=== PATIENT | female | born 1985 | race Caucasian/White ===

== ENCOUNTER → 2021-06-24 10:21 | Outpatient (CLI) | payer OTHER, SELFPAY ==
--- NOTE | 2021-06-24 12:23 | DIET.PN ---
Dietary Progress Note Assessment: 35y F attending RD visit for help with initiating a low FODMAP diet for abd bloating and diarrhea. Also eats mostly plant based so curious how much protein she should get and any other nutrients of concern. Pt noticed starting in February 2021 episodes of lower abd bloating c malodorous flatulence and diarrhea 3-4x/d. Pt had similar presentation 2y ago and was told to try lactose free diet. Pt had resolved sx with lactose free diet and still avoids dairy. 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 Pt visited PCP who gave her some handouts on low FODMAP diet and referral to RD. Pt has been busy and on vacations this summer but is trying to stay away from some of the biggest FODMAPs (cruciferous, onions, garlic, beans/lentils, gluten, dairy). She has been eating eggs c GF toast for breakfast, Green bowl with quinoa for lunch and feels her digestion tolerates this well. However, she is overwhelmed by the elimination phase of the diet and wants to understand more of why and how the process works. Pt eats mostly plant based, but does consume eggs, seafood, beef, etc several times per month. Nutrition Diagnosis: altered GI function r/t intolerance to some plant sugars and fibers aeb pt reports lower abd bloating and diarrhea (3-4x/d), pt notices reduced sx with reduction in high FODMAP foods. Interventions: 1. Assessed pts primarily plant based diet for nutritional adequacy. Provided pt handout of nutrients of concern with food sources of all. Recc pt take B12 sublingual or liquid supplement if intake of animal protein is less than once weekly. Took special care to instruct pt on s/sx anemia and ways to combine food to ensure adequate iron intake as pt is menstruating female with high activity level. Calculated pts protein needs and provided handout on Vegan protein sources. 2. Provided pt overview on low FODMAP diet protocol for both elimination and reintroduction phase. Provided pt handouts and online resources. Reviewed FODMAP categories and foods which are low, moderate, and high. Educated on the reintroduction phase and how to test one food at a time with the end goal of as varied diet as possible without sx. Answered all pt questions. Provided pt meal and snack plan. Diet Order: low FODMAP diet x4w followed by reintroduction phase. EER: 50-60g PRO/d Monitoring/Evaluations: Pt will call in 4-6w to schedule visit for reintroduction phase planning or sooner if needed.
== END ==
PROVIDERS: PCP Registered Nurse Diabetes Educator; Referring Provider Registered Nurse Diabetes Educator; Visit Provider Registered Nurse Diabetes Educator
DX: R14.0 Abdominal distension (gaseous) (principal); R19.7 Diarrhea, unspecified; Z71.3 Dietary counseling and surveillance
CPT/HCPCS: 97802

== ENCOUNTER → 2022-02-04 16:26 | Outpatient (ROUT) | payer OTHER, SELFPAY | PROVIDERS: PCP Registered Nurse Diabetes Educator; Visit Provider Family Medicine | DX: Z34.00 Encounter for supervision of normal first pregnancy, unspecified trimester (principal) | CPT/HCPCS: 87086 ==

== ENCOUNTER → 2022-02-19 16:03 | Outpatient (CLI) | payer OTHER, SELFPAY ==
--- NOTE | 2022-02-19 16:05 | DI.ECHO.S_ITS ---
[place] [facility]---------+ [facility] +---------+ : : [address] : : : : [id number] : : : : Phone: [phone]+ Echocardiogram Report + + :Name: NICK OSCAR Study Date: 02/19/2022 Height: 59 in : :[facility] ReadingLocation: Weight: 106 lb: : Gender: Female BSA: 1.4 m2 : :: 1985 Age: 36 yrs BP: 92/58 mmHg: :Reason For Study: Documented PFO : : Performed By: Garth Cordova : :Referring: RAMON DURAN : + + Interpretation Summary Pt is - no bubble study was performed. Left ventricular ejection fraction is estimated to be 50%. The interatrial septum bows toward right atrium consistent with elevated left atrial pressure. There is no Doppler evidence for an atrial septal defect. Bubble study was not done. Procedure: A two-dimensional transthoracic echocardiogram with color flow and Doppler was performed. The study quality was technically good. There is no prior echocardiogram noted for this patient. The patient was in normal sinus rhythm during the exam. Left Ventricle: The left ventricle is normal in size. There is normal left ventricular wall thickness. Left ventricular ejection fraction is estimated to be 50%. Right Ventricle: The right ventricle is normal in size and function. Atria: The left atrium is mildly dilated. Right atrial size is normal. The interatrial septum bows toward right atrium consistent with elevated left atrial pressure. There is no Doppler evidence for an atrial septal defect. Bubble study was not done. Mitral Valve: The mitral valve is normal in structure and function. There is trace mitral regurgitation. Aortic Valve: The aortic valve is trileaflet. The aortic valve opens well. No aortic regurgitation is present. Tricuspid Valve: The tricuspid valve is normal in structure and function. There is a trace or physiologic amount of tricuspid regurgitation. Pulmonary artery pressures cannot be estimated because of the lack of a measurable TR jet velocity but the IVC suggests a CVP of around 3 mmHg. Pulmonic Valve: The pulmonic valve is normal in structure and function. There is trace pulmonic regurgitation. Great Vessels: The aortic root is normal size. The dimensions of the ascending aorta are normal. The pulmonary artery is normal size. The IVC is of normal diameter and collapses greater than 50% with a sniff. This suggests a low right atrial pressure of 3 mm Hg. Pericardium/ Pleura There is no pericardial effusion. There is no pleural effusion. MMode/2D Measurements & Calculations LVIDd: 4.8 cm LVOT diam: 1.8 cm LVIDs: 3.0 cm Ao root diam: 2.4 cm FS: 37.0 % asc Aorta Diam: 2.7 cm EPSS: 0.36 cm Ao Arch Diam (Prox Trans): 2.0 cm IVSd: 0.54 cm LVPWd: 0.54 cm LV rosenthal. diameter/BSA (cm/m^2): 3.4 LV sys. diameter/BSA (cm/m^2): 2.1 LA A2 area: 17.2 cm2 RA long axis: 4.6 cm LA A4 area: 19.8 cm2 RA area: 14.2 cm2 LA length (vol): 5.7 cm RA vol: 37.5 ml LA vol: 50.6 ml RA : 26.7 ml/m2 LA vol index: 36.0 ml/m2 IVC diam: 1.9 cm TAPSE: 2.2 cm Doppler Measurements & Calculations Ao V2 max: 137.5 cm/sec LVOT Max Dk: 98.8 cm/sec Ao V2 mean: 111.3 cm/sec LV V1 max P.9 mmHg Ao max P.6 mmHg LV V1 VTI: 21.6 cm Ao mean P.1 mmHg RENATO(I,D): 1.8 cm2 Ao V2 VTI: 31.3 cm RENATO(V,D): 1.9 cm2 sev ratio: 0.69 RENATO indexed to BSA (cm^2/m^2): 1.3 MV E max dk: 86.9 cm/sec PA V2 max: 79.2 cm/sec MV A max dk: 55.5 cm/sec PA V2 mean: 60.0 cm/sec MV E/A: 1.6 PA mean P.6 mmHg Med Peak E' Dk: 7.2 cm/sec PA pr(Accel): 17.3 mmHg E/E' med: 12.1 Lat Peak E' Dk: 9.0 cm/sec E/E' lat: 9.6 E/e' average: 10.9 MV dec time: 0.16 sec SV(LVOT): 57.6 ml Reading Physician:09:09 AM
== END ==
PROVIDERS: PCP Registered Nurse Diabetes Educator; Referring Provider Family Medicine; Visit Provider Family Medicine
DX: Q21.1 Atrial septal defect (principal)
CPT/HCPCS: 93306

== ENCOUNTER → 2022-02-21 15:20 | Outpatient (CLI) | payer OTHER, SELFPAY | PROVIDERS: PCP Registered Nurse Diabetes Educator; Referring Provider Family Medicine; Visit Provider Family Medicine | DX: Z3A.11 11 weeks gestation of pregnancy (principal) | CPT/HCPCS: 36415 ==

== ENCOUNTER → 2022-04-22 07:38 | Outpatient (CLI) | payer OTHER, SELFPAY ==
--- NOTE | 2022-04-22 07:39 | DI.US.S_ITS ---
PROCEDURE: US OB >= 14 WEEKS FETUS INDICATIONS: Anatomy Screening OUTSIDE/PRIOR DATING DATA: Last menstrual period (LMP): 11/22/2021. LMP-based estimated date of delivery (NIC): 08/29/2022 First dating scan (date and location): 04/22/2022. Estimated date of delivery (NIC) from first dating scan: 09/05/2022 TECHNIQUE: Real-time scanning was performed of the fetus, with image documentation and biometric measurements. Endovaginal scannin [place] it COMPARISON: None. FINDINGS: General: A single living intrauterine gestation is present. Presentation: Breech Placenta: Placental position is posterior, without previa. Amniotic fluid index: 13.1 cm, normal range is 5-24 cm. Single deepest vertical pocket is 5 cm. heart rate: 153 beats per minute. Maternal cervical canal: 4.0 cm long. Normal lower limit is 2.5 cm. biometrics: Biparietal diameter: 4.7 cm, 20 weeks, 0 day Head circumference: 18.6 cm, 20 weeks, 6 days Abdominal circumference: 15.9 cm, 21 weeks, 0 day Femur length: 3.3 cm, 20 weeks, 1 day Clinically estimated gestational age: Not applicable. Composite gestational age from present scan: 20 weeks, 4 days Estimated weight and percentile: 367 grams, 9 percent Anatomic survey: Neuro: Ventricles are non-dilated at less than 10 mm. Cisterna magna is normal at 3-11 mm. Cerebellum is normal in size and morphology. Nuchal skin fold: Normal at less than 6 mm between 14-21 weeks gestational age. Face: Nose and lips, facial profile are normal. Spine: No evidence for spina bifida. Heart: 4-chambered heart is present, with normal ventricular outflow tracts. Diaphragm: Diaphragm is intact. Stomach: Left-sided stomach is present. Kidneys: No hydronephrosis. Normal is less than 5 mm in 2nd trimester, less than 7 mm in 3rd trimester. Cord: 3-vessel cord has orthotopic insertion. Bladder: Normal in size. Extremities: All 4 extremities identified. IMPRESSION: 1. Single live intrauterine gestation with fetus in breech presentation. heart rate is 153 beats per minute. Normal amount of amniotic fluid. 2. Estimated gestational age is 20 weeks, 4 days. Estimated weight is at 9 percent. 3. Normal anatomic survey. We strive to produce accurate, complete, and clear reports of imaging services. To assist us in improving patient care, this report was composed using standard report templates and voice recognition software. Therefore, it may contain abnormal punctuation, insertions and/or omissions. Occasional wrong-word or sound-alike substitutions may occur. Though we review the report and make efforts to correct it, we do recommend that the report be read carefully in proper context to recognize any text inaccuracies. Dictated by: Geoff Cabrales M.D. on 04/22/2022 at 10:19 Approved by: Geoff Cabrales M.D. on 04/22/2022 at 10:26
== END ==
PROVIDERS: PCP Registered Nurse Diabetes Educator; Referring Provider Family Medicine; Visit Provider Family Medicine
DX: Z34.92 Encounter for supervision of normal pregnancy, unspecified, second trimester (principal); Z3A.20 20 weeks gestation of pregnancy
CPT/HCPCS: 76811

== ENCOUNTER → 2022-05-20 07:32 | Outpatient (CLI) | payer OTHER, SELFPAY ==
[2022-05-20 10:03] LABS: Hematocrit 33.9 % (36-46)
[2022-05-20 11:12] LABS: GTT (PREG) 1 Hour PP 50gm Dose 120 mg/dL (76-139)
== END ==
PROVIDERS: PCP Registered Nurse Diabetes Educator; Referring Provider Family Medicine; Visit Provider Family Medicine
DX: O26.899 Other specified pregnancy related conditions, unspecified trimester (principal); Z67.91 Unspecified blood type, Rh negative
CPT/HCPCS: 36415; 82950; 85014; 85018; 86850

== ENCOUNTER 2022-08-11 14:01 | Outpatient (CLI) | payer OTHER, SELFPAY ==
--- NOTE | 2022-08-11 14:32 | PM.OBTRLD ---
Visit Information Visit Information Date of evaluation: 08/11/22 Primary OB Provider: Samreen Thornton Reason for Evaluation: Yes non-stress test non-stress test reason: other (AMA) Comments/Additional reasons for admission: Pt is a 37yo at 36w0d here for NST for AMA. She is feeling her baby move regularly. No LOF, vaginal bleeding, contractions. [facility] Medical History (Updated 08/11/22 @ 14:33 by Samreen Thornton MD) Abnormal Pap smear of cervix (~2012) HPV test positive Human papilloma virus (~2012) Migraines (~2014) PFO (patent foramen ovale) (~10/2015) Surgical History (Updated 05/10/21 @ 22:34 by Gretchen Del Castillo) Anesthesia [place] teeth removed Family History (Updated 01/29/22 @ 10:12 by Jamilah Lara RN) Father Osteoarthritis History of heart disease Mother Hypertension Grandmother Hypertension Grandfather Cancer Grandmother Cancer Diabetes mellitus History of heart disease Breast cancer Social History marital status: number of children: 0 household members: spouse lives independently: Yes housing: house pets and animals: No education level: college 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: Yes special cody needs: No travel history: other ([place] for 3 wks) seatbelt use: always water heater temp set < 120 deg: Yes (will check) working smoke detector in home: Yes fire extinguisher in home: Yes carbon monox detector in home: No firearms in home: No do you feel safe at home: Yes Smoking Status: Never smoker second hand exposure: No alcohol intake: former (1 drink/week) substance use type: does not use during the past year weight has: remained stable well-balanced diet: daily or most days daily servings fruits/ve-4 caffeine: No Type(s) of exercise: walking, weight lifting and yoga frequency: 3-4 times per week Evaluation Evaluation Baseline heart rate: 150 Variability: Moderate (11-25) monitor accelerations: Present Monitor Decelerations: Absent Category of Tracing: Reactive Diagnosis, Plan/Disposition Final Diagnosis (1) Advanced maternal age (AMA) in : Status: Acute Plan/Disposition Plan: 37yo at 36w0d here for NST for AMA. NST reactive. Stable to d/c home. OB Disposition: home
== END 2022-08-11 14:35 | disposition home or self-care (01) ==
LOC: LABOR 15:20 → OB 08-15 08:29
PROVIDERS: PCP Registered Nurse Diabetes Educator; Referring Provider Family Medicine; Visit Provider Family Medicine
DX: O09.513 Supervision of elderly primigravida, third trimester (principal); Z3A.36 36 weeks gestation of pregnancy; Z36.85 Encounter for antenatal screening for Streptococcus B
CPT/HCPCS: 59025; 87653; G0378; G0379

== ENCOUNTER → 2022-08-11 16:14 | Outpatient (CLI) | payer OTHER, SELFPAY ==
[2022-08-12 15:42] LABS: Strep Grp B PCR NEG for Grp B Strep
== END ==
PROVIDERS: PCP Registered Nurse Diabetes Educator; Visit Provider Family Medicine
DX: Z36.85 Encounter for antenatal screening for Streptococcus B (principal)
CPT/HCPCS: 87653

== ENCOUNTER 2022-08-22 10:02 | Outpatient (CLI) | payer OTHER, SELFPAY ==
--- NOTE | 2022-08-22 10:27 | P.TNLD_ITS ---
Visit Information Visit Information Date of evaluation: 08/22/22 Primary OB Provider: Samreen Thornton Reason for Evaluation: Yes non-stress test Comments/Additional reasons for admission: 37yo at 37w4d here for NST for AMA. She is feeling her baby move regularly. No contractions, LOF, vaginal bleeding. [facility] Medical History (Updated 08/22/22 @ 15:52 by Samreen Thornton MD) Abnormal Pap smear of cervix (~2012) HPV test positive Human papilloma virus (~2012) Migraines (~2014) PFO (patent foramen ovale) (~10/2015) Surgical History (Updated 05/10/21 @ 22:34 by Gretchen Del Castillo) Anesthesia [place] teeth removed Family History (Updated 01/29/22 @ 10:12 by Jamilah Lara RN) Father Osteoarthritis History of heart disease Mother Hypertension Grandmother Hypertension Grandfather Cancer Grandmother Cancer Diabetes mellitus History of heart disease Breast cancer Social History marital status: number of children: 0 household members: spouse lives independently: Yes housing: house pets and animals: No education level: college 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: Yes special cody needs: No travel history: other ([place] for 3 wks) seatbelt use: always water heater temp set < 120 deg: Yes (will check) working smoke detector in home: Yes fire extinguisher in home: Yes carbon monox detector in home: No firearms in home: No do you feel safe at home: Yes Smoking Status: Never smoker second hand exposure: No alcohol intake: former (1 drink/week) substance use type: does not use during the past year weight has: remained stable well-balanced diet: daily or most days daily servings fruits/ve-4 caffeine: No Type(s) of exercise: walking, weight lifting and yoga frequency: 3-4 times per week Evaluation Evaluation Baseline heart rate: 150 Variability: Moderate (11-25) monitor accelerations: Present Monitor Decelerations: Absent Category of Tracing: Reactive Diagnosis, Plan/Disposition Final Diagnosis (1) Advanced maternal age (AMA) in : Status: Acute (2) 37 weeks gestation of : Status: Acute Plan/Disposition Plan: 37yo at 37w4d here for NST for AMA. NST reactive. Continue weekly testing. OB Disposition: home
== END 2022-08-22 10:35 | disposition home or self-care (01) ==
LOC: LABOR 10:20 → OB 09-03 12:13
PROVIDERS: PCP Registered Nurse Diabetes Educator; Referring Provider Family Medicine; Visit Provider Family Medicine
DX: O09.513 Supervision of elderly primigravida, third trimester (principal); Z3A.37 37 weeks gestation of pregnancy
CPT/HCPCS: 59025; G0378; G0379

== ENCOUNTER 2022-08-29 05:54 | Observation (INO) | payer OTHER, SELFPAY ==
[2022-08-29] MEDS: TERBUTALINE 1 MG/ML VIAL 0.25 MG SUBCUT (07:07)
--- NOTE | 2022-08-29 07:38 | P.HPOB_ITS ---
OB HPI Date/Time Date of admission: 08/29/22 Date Patient Seen: 08/29/22 Time Patient Seen: 07:00 History of Present Condition Chief complaint: inversion NIC Calculator Estimated Delivery Date Method Current WG Current Estimate 09/08/22 Manual 38w 4d Final NIC - ALLA Other Estimates 08/29/22 LMP (Certain) 40w 0d 09/08/22 Ultrasound #1 38w 4d Estimated Gestational Age (weeks): 38w4d : 1 Para: 0 Narrative: 37yo at 38w4d here for external cephalic version due to breech presentation. She has been feeling her baby move regularly. No vaginal bleeding, LOF, contractions. Her has been complicated by AMA with negative cfDNA testing, hyperemesis, maternal PFO on baby aspirin with normal echo. care: good care, initiated at week # (9) and pounds weight gain (25) Dating criteria OB: based on 1st trimester US only Obstetrical complications: hyperemesis Medical complications OB: cardiovascular (PFO) Preadmission Labs Last OB Lab Results: Blood Type A Negative 02/11/22 15:10 Antibody Screen Negative 05/20/22 08:47 Hematocrit 33.9 % (36-46) L 05/20/22 08:47 Hemoglobin 12.0 g/dL (12.0-16.0) 05/20/22 08:47 Hepatitis B Surface Antigen Negative s/c (NEGATIVE) 02/11/22 15 :10 Hepatitis C Antibody Negative s/c (NEGATIVE) 02/11/22 15:10 Rubella Antibody 7.1 IU/mL (>15) L 02/11/22 15:10 Varicella-Zoster IgG Antibody 325 index (Immune >165) 02/11/22 15:10 Glucose 1 Hour 120 mg/dL (76-139) 05/20/22 08:47 Group B Streptococcus (PCR) Neg for grp b strep 08/11/22 16:14 -: Urine: negative Genetic Screens: Cell-free DNA: Normal External Labs -: Urine: negative Evaluation Evaluation Baseline heart rate: 145 Variability: Moderate (11-25) monitor accelerations: Present Monitor Decelerations: Absent Category of Tracing: Reactive [facility] Medical History (Updated 08/22/22 @ 15:52 by Samreen Thornton MD) Abnormal Pap smear of cervix (~2012) HPV test positive Human papilloma virus (~2012) Migraines (~2014) PFO (patent foramen ovale) (~10/2015) Surgical History (Updated 05/10/21 @ 22:34 by Gretchen Del Castillo) Anesthesia [place] teeth removed Family History (Updated 01/29/22 @ 10:12 by Jamilah Lara RN) Father Osteoarthritis History of heart disease Mother Hypertension Grandmother Hypertension Grandfather Cancer Grandmother Cancer Diabetes mellitus History of heart disease Breast cancer Social History marital status: number of children: 0 household members: spouse lives independently: Yes housing: house pets and animals: No education level: college 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: Yes special cody needs: No travel history: other ([place] for 3 wks) seatbelt use: always water heater temp set < 120 deg: Yes (will check) working smoke detector in home: Yes fire extinguisher in home: Yes carbon monox detector in home: No firearms in home: No do you feel safe at home: Yes Smoking Status: Never smoker second hand exposure: No alcohol intake: former (1 drink/week) substance use type: does not use during the past year weight has: remained stable well-balanced diet: daily or most days daily servings fruits/ve-4 caffeine: No Type(s) of exercise: walking, weight lifting and yoga frequency: 3-4 times per week Meds Home Medications and Allergies Home Medications Medication Instructions Recorded Confirmed Type rizatriptan 10 mg disintegrating See Rx Instructions PO .COMPLEX 05/07/21 08/11/22 Rx tablet #30 tabs doxylamine succinate 25 mg tablet 25 mg PO BEDTIME PRN 01/29/22 08/11/22 History (Unisom (doxylamine)) prenat.vits,hernan,[id number] 1 tab PO DAILY 01/29/22 08/11/22 History pyridoxine (vitamin B6) 100 mg 100 mg PO QID 01/29/22 08/11/22 History tablet double electric breast pump and #1 ea 07/07/22 08/11/22 Rx supplies ondansetron 4 mg disintegrating 4 mg PO Q6H PRN nausea and 08/26/22 Rx tablet vomiting #30 tabs promethazine 25 mg tablet 25 mg PO QID PRN nausea and 08/26/22 Rx vomiting #30 tabs Allergies Allergy/AdvReac Type Severity Reaction Status Date / Time No Known Drug Allergies Allergy Unverified 08/11/22 15:50 Assessment and Plan Assessment and Plan Assessment and Plan narrative: 37yo at 38w4d here for external cephalic version for breech presentation. Risks vs benefits were discussed with the patient. Risks including but not li mited to intolerance, placental abruption, need for emergent . The pt agreed to the procedure, and the consent was signed and placed in her chart. The pt will receive terbutaline prior to the procedure.
== END 2022-08-29 10:00 | disposition home or self-care (01) ==
PROVIDERS: Admitting Provider Family Medicine; PCP Registered Nurse Diabetes Educator; Referring Provider Family Medicine; Visit Provider Family Medicine
DX: O32.1XX0 Maternal care for breech presentation, not applicable or unspecified (principal); Z3A.38 38 weeks gestation of pregnancy
CPT/HCPCS: 59025; 59050; 59412; G0378; G0379

== ENCOUNTER 2022-09-01 13:58 | Inpatient (IN) | payer OTHER, SELFPAY ==
[2022-09-01] MEDS: LACTATED RINGERS 1,000 ML 100 ML IV ×3 (14:15→18:17)
--- NOTE | 2022-09-01 14:45 | P.HPOB_ITS ---
OB HPI Date/Time Date of admission: 09/01/22 Date Patient Seen: 09/01/22 Time Patient Seen: 14:45 History of Present Condition Chief complaint: Labor NIC Calculator Estimated Delivery Date Method Current WG Current Estimate 09/08/22 Manual 39w 0d Final NIC - ALLA Other Estimates 08/29/22 LMP (Certain) 40w 3d 09/08/22 Ultrasound #1 39w 0d Estimated Gestational Age (weeks): 39w0d : 1 Para: 0 Narrative: 37yo at 39w0d who presented with SROM. Pt reports feeling a gush of fluid around 11am, with contractions starting shortly after and getting more intense. She continues to feel her baby move regularly. No vaginal bleeding. Pt had a successful version on 08/29, however she felt baby convert back to breech presentation that evening. The pts has been complicated by hyperemesis. Pt also has a PFO, but was cleared by Cardiology and MFM for delivery at this facility. echo was normal. care: good care, initiated at week # and pounds weight gain Dating criteria OB: based on 1st trimester US only Ultrasounds: normal 1st trimester US Obstetrical complications: hyperemesis Medical complications OB: cardiovascular (PFO) Indications Operative indications ( section): breech presentation Preadmission Labs Last OB Lab Results: Blood Type A Negative 02/11/22 15:10 Antibody Screen Negative 05/20/22 08:47 Hematocrit 33.9 % (36-46) L 05/20/22 08:47 Hemoglobin 12.0 g/dL (12.0-16.0) 05/20/22 08:47 Hepatitis B Surface Antigen Negative s/c (NEGATIVE) 02/11/22 15 :10 Hepatitis C Antibody Negative s/c (NEGATIVE) 02/11/22 15:10 Rubella Antibody 7.1 IU/mL (>15) L 02/11/22 15:10 Varicella-Zoster IgG Antibody 325 index (Immune >165) 02/11/22 15:10 Glucose 1 Hour 120 mg/dL (76-139) 05/20/22 08:47 Group B Streptococcus (PCR) Neg for grp b strep 08/11/22 16:14 -: Urine: negative Genetic Screens: Cell-free DNA: Normal External Labs -: Urine: negative Evaluation Evaluation Baseline heart rate: 150 Variability: Moderate (11-25) monitor accelerations: Present Monitor Decelerations: Absent Contraction Frequency (minutes): 3 Status: Category l Dilation (cm): 2 Effacement (%): 90 PFSH Medical History (Updated 09/01/22 @ 12:28 by Samreen Thornton MD) Abnormal Pap smear of cervix (~2012) HPV test positive Human papilloma virus (~2012) Migraines (~2014) PFO (patent foramen ovale) (~10/2015) Surgical History (Updated 05/10/21 @ 22:34 by Gretchen Del Castillo) Anesthesia [place] teeth removed Family History (Updated 01/29/22 @ 10:12 by Jamilah Lara RN) Father Osteoarthritis History of heart disease Mother Hypertension Grandmother Hypertension Grandfather Cancer Grandmother Cancer Diabetes mellitus History of heart disease Breast cancer Social History marital status: number of children: 0 household members: spouse lives independently: Yes housing: house pets and animals: No education level: college 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: Yes special cody needs: No travel history: other ([place] for 3 wks) seatbelt use: always water heater temp set < 120 deg: Yes (will check) working smoke detector in home: Yes fire extinguisher in home: Yes carbon monox detector in home: No firearms in home: No do you feel safe at home: Yes Smoking Status: Never smoker second hand exposure: No alcohol intake: former (1 drink/week) substance use type: does not use during the past year weight has: remained stable well-balanced diet: daily or most days daily servings fruits/ve-4 caffeine: No Type(s) of exercise: walking, weight lifting and yoga frequency: 3-4 times per week Meds Home Medications and Allergies Home Medications Medication Instructions Recorded Confirmed Type rizatriptan 10 mg disintegrating See Rx Instructions PO .COMPLEX 05/07/21 08/11/22 Rx tablet #30 tabs doxylamine succinate 25 mg tablet 25 mg PO BEDTIME PRN 01/29/22 08/11/22 History (Unisom (doxylamine)) prenat.vits,hernan,[id number] 1 tab PO DAILY 03/02/22 09/12/22 History pyridoxine (vitamin B6) 100 mg 100 mg PO QID 01/29/22 08/11/22 History tablet double electric breast pump and #1 ea 07/07/22 08/11/22 Rx supplies ondansetron 4 mg disintegrating 4 mg PO Q6H PRN nausea and 08/26/22 Rx tablet vomiting #30 tabs promethazine 25 mg tablet 25 mg PO QID PRN nausea and 08/26/22 Rx vomiting #30 tabs Allergies Allergy/AdvReac Type Severity Reaction Status Date / Time No Known Drug Allergies Allergy Unverified 08/11/22 15:50 OB Exam Narrative Exam Narrative: Gen: NAD, sitting comfortably in bed, appears well CV: RRR, no murmurs Resp: clear to auscultation bilaterally Abd: soft, nontender, gravid Ext: no edema Assessment and Plan Assessment and Plan Assessment and Plan narrative: 37yo at 39w0d here with SROM, baby in breech presentation after successful version on 08/29, unfortunately flipped back to breech. otherwise complicated by hyperemesis, pt with PFO cleared for delivery here with normal echo. GBS negative, Rh negative. Discussed with the pt and her the risks vs benefits of . Risks including but not limited to bleeding/hemorrhage, infection, injury to other organs such as the bowel/bladder, injury to fetus. The pt is agreeable to blood transfusion if medically necessary. The risks of attempted repeat version and vaginal breech delivery were also discussed. The pt and her consent to surgery. Consent was signed and placed in chart. The pt will receive 2g of Ancef prior to surgery. SCDs to be placed.
[2022-09-01 15:00] LABS: Add Manual Diff / Slide Review NO; Basophils Absolute Auto 0 /uL (0-100); Basophils Percent Auto 0.2 % (0-2); Eosinophils Absolute Auto 0 /uL (0-450); Eosinophils Percent Auto 0.1 % (2-4); Hematocrit 39.9 % (36-46); Hemoglobin 13.6 g/dL (12.0-16.0); Lymphocytes Absolute Auto 2300 /uL (1100-4500); Lymphocytes Percent Auto 25.1 % (25-40); Mean Corpuscular HGB Conc 34.1 % (30-36); Mean Corpuscular Hemoglobin 32.6 PG (26-34); Mean Corpuscular Volume 95.4 fL (80-100); Monocytes Absolute Auto 600 /uL (0-900); Monocytes Percent Auto 7.2 % (3-14); Neutrophils Absolute Auto 6100 /uL (1500-7000); Neutrophils Percent Auto 67.4 % (50-75); Platelet Count 192 X10^3/uL (150-400); Red Blood Cell Count 4.18 X10^6/uL (4.0-5.2); Red Cell Distribution Width 13.2 % (11.6-14.8)
--- NOTE | 2022-09-01 15:02 | PM.PREOP ---
Pre-operative Note COVID-19 COVID-19 status: Negative Result date/Date tested (Pos, Neg/Pending): 09/01/22 Interval Note History & Physical reviewed/Exam performed by Physician: Yes Changes to H&P: No
[2022-09-01 15:04] VITALS: BP 124/64
[2022-09-01 15:15] LABS: COVID19 -Nasal RAPID Negative (Negative)
[2022-09-01] MEDS: CEFAZOLIN 2 GM/100 ML PREMIX 100 ML IV (15:40)
--- NOTE | 2022-09-01 16:02 | SUR.OPER ---
Supine on Padded OR bed, head on pillow, safety belt at thigh, arms secured on padded arm boards at <90 degrees abduction. Bump under right buttock. Legs uncrossed with pillow under knees, gel pad to heels, tape over blanket to lower legs. Gel pad placed between urinary catheter tubing and patients posterior upper leg.
[2022-09-01 16:41] VITALS: BP 109/73; PULSE 71; RESP 24; TEMP 36.3; O2SAT 100
[2022-09-01 16:46] VITALS: BP 115/76; PULSE 68; RESP 13; O2SAT 100
[2022-09-01 16:51] VITALS: BP 107/72; PULSE 78; RESP 15; O2SAT 100
[2022-09-01 16:56] VITALS: BP 103/70; PULSE 63; RESP 18; O2SAT 100
--- NOTE | 2022-09-01 16:56 | SUR.OPER ---
Viable baby girl delivered at 1552. Placenta delivered. Cord blood tubes X2 and placenta given to L&D RN.
--- NOTE | 2022-09-01 16:58 | SUR.PHASEI ---
Report called to Mallika.
[2022-09-01 17:01] VITALS: BP 108/76; PULSE 75; RESP 13; TEMP 36.2; O2SAT 100
--- NOTE | 2022-09-01 17:16 | SUR.PHASEI ---
Patient transferred to [facility]. Report to IZABELA Tena stable. IV patent. Fundus and Peripad checked. Stern patent.
[2022-09-01] MEDS: ACETAMINOPHEN 325 MG TABLET 650 MG PO (20:24)
--- NOTE | 2022-09-01 21:26 | PM.OBCS.1 ---
Operative Date/Time/Diagnoses Date of procedure: 09/01/22 Time of procedure: 15:00 Pre-op diagnosis: 39w0d gestation AMA GBS negative Rh negative PFO Hyperemesis gravidarum Breech presentation Post-op diagnosis: same Procedure & Clinicians Procedure: Primary Same procedure as scheduled: Yes Indications: Breech presentation Surgeon: Samreen Thornton Click Yes if Unassisted: No Auto Claim Representative: Gudelia Lemons Anesthesia Type: Spinal Operative Notes Findings: Normal uterus, ovaries, and tubes Closure Type: primary Specimen(s): cord blood Intraoperative meds administered: Duramorph, Ketorolac and Pitocin Applied: Catheter Estimated Blood Loss (mL): 700 Blood products transfused: none Procedure in detail: OPERATIVE COURSE: The patient was taken to the operating room where spinal anesthesia was placed. She was then prepared and draped in the normal sterile fashion in the dorsal supine position with a leftward tilt. Anesthesia was tested and found to be adequate. A Pfannensteil skin incision was then made with the scalpel and carried through to the underlying layer of fascia with the scalpel. The fascia was incised in the midline and the incision extended laterally with the Pacheco scissors. The superior aspect of the fascial incision was then grasped with Jesse clamps, elevated with the help of the neurosurgical physician assistant, and the underlying rectus muscles dissected off bluntly and sharply where needed. Attention was then turned to the inferior aspect of the incision which, in a similar fashion, was grasped, tented up with Jesse clamps, and the rectus muscle dissected off bluntly and sharply with Pacheco scissors. The rectus muscles were then in the midline, and the peritoneum was identified and entered bluntly. The peritoneal incision was then extended with good visualization of the bladder. Retraction was provided by the neurosurgical physician assistant. The bladder blade was then inserted and the vesicouterine peritoneum identified, grasped with pick-ups and entered sharply with the Metzenbaum scissors. The incision was then extended laterally and the bladder flap created digitally. The bladder blade was then reinserted and the lower uterine segment incised in a transverse fashion with the scalpel, with the neurosurgical physician assistant providing suction. The uterine incision was then extended superolaterally by pulling superolaterally on both sides. Membranes were ruptured and fluid was clear. The bladder blade was removed and feet were delivered. The infant was then wrapped in a moist towel, and anterior shoulder was delivered. The infant was flipped over, and other shoulder was delivered from anterior position. The fetus was then moved to maternal abdomen, and head delivered with gentle traction on the jaw. The nose and mouth were suctioned with bulb suction and the cord was clamped and cut. The infant was handed off to the waiting nursing staff. Cord blood was collected for Rh status. The placenta was then delivered with gentle cord traction. The uterus was then cleared of all clots and debris. The uterine incision was repaired with O-Vicryl in a running, locked fashion. A second layer of the same suture was used to obtain excellent hemostasis. The gutters were cleared of all clots. Hysterotomy was investigated and found to be hemostatic. The bladder flap was closed with 2-O Chromic. The peritoneum was closed with 3-O Vicryl. The fascia was reapproximated with O-Vicryl in a running fashion. The subcutaneous tissue was reapproximated with 3-O Vicryl. The skin was closed with 4-O Vicryl. The neurosurgical physician assistant helped with retraction during closures. SPONGE AND NEEDLE COUNTS: Correct x3. DRESSING: Aquacel ANTICOAGULATION: SCDs applied prior to Surgery Preop antibiotics given (see MAR). The patient was taken to recovery room having tolerated procedure well. Complications: none [place] Baby 1: Infant Gender: Female Presentation: breech Details: [place] Placental Delivery Description: Spontaneous Cord Vessel Description: 3 Vessels score (1 min): 9 score (5 min): 9 weight: 6 lb 7.741 oz Post-operative Condition: stable Disposition: PACU Aftercare: routine postop
[2022-09-01] MEDS: KETOROLAC 30 MG/ML VIAL IV (22:29)
[2022-09-02] MEDS: diphenhydrAMINE 50 MG/ML VIAL 25 MG IV (01:52)
[2022-09-02] MEDS: KETOROLAC 30 MG/ML VIAL IV ×2 (05:11→11:43)
[2022-09-02 07:33] LABS: Add Manual Diff / Slide Review NO; Basophils Absolute Auto 0 /uL (0-100); Basophils Percent Auto 0.3 % (0-2); Eosinophils Absolute Auto 100 /uL (0-450); Eosinophils Percent Auto 0.9 % (2-4); Hematocrit 32.5 % (36-46); Hemoglobin 11.2 g/dL (12.0-16.0); Lymphocytes Absolute Auto 2000 /uL (1100-4500); Mean Corpuscular HGB Conc 34.5 % (30-36); Mean Corpuscular Hemoglobin 32.6 PG (26-34); Mean Corpuscular Volume 94.4 fL (80-100); Monocytes Absolute Auto 700 /uL (0-900); Monocytes Percent Auto 6.1 % (3-14); Neutrophils Absolute Auto 8300 /uL (1500-7000); Neutrophils Percent Auto 74.7 % (50-75); Platelet Count 175 X10^3/uL (150-400); Red Blood Cell Count 3.44 X10^6/uL (4.0-5.2); Red Cell Distribution Width 13.6 % (11.6-14.8); White Blood Cell Count 11.1 X10^3/uL (4.5-11.0)
[2022-09-02] MEDS: DOCUSATE 100 MG CAPSULE 200 MG PO (11:45)
[2022-09-02 11:47] VITALS: TEMP 36.7
[2022-09-02] MEDS: ACETAMINOPHEN 325 MG TABLET 650 MG PO ×2 (11:47→18:51)
--- NOTE | 2022-09-02 14:36 | P.PNOB_ITS ---
Subjective - OB Subjective Patient comments: no complaints and pain well controlled [place] baby status: doing well and nursing well feeding status: exclusively breast feeding Narrative: Patient reports that she is doing well. Her lochia is decreasing appropriately. She has voided successfully. She has not yet passed flatus. Exam Vital Signs (past 8 hours): - 09/02/22 11:47 Temperature 98.0 F Oxygen Delivery Method Room Air Resp Auscultation: clear to auscultation bilaterally Cardio Rate: regular rate Rhythm: regular rhythm Heart Sounds: S1 normal, S2 normal and no murmurs GI Inspection: non-distended and incision (dressing c/d/i) Palpation: soft, No guarding and tender (appropriately tender) Auscultation: normal bowel sounds Other: fundus firm and below the umbilicus Extrem Right upper extremity: no edema Objective Labs Result Diagrams: 09/02/22 07:00 Labs: Laboratory Results - last 24 hr 09/01/22 09/01/22 09/01/22 14:35 14:35 14:35 WBC 9.0 RBC 4.18 Hgb 13.6 Hct 39.9 MCV 95.4 MCH 32.6 MCHC 34.1 RDW 13.2 Plt Count 192 Neut % (Auto) 67.4 Lymph % (Auto) 25.1 [place] % (Auto) 7.2 Eos % (Auto) 0.1 L Baso % (Auto) 0.2 Neut # (Auto) 6100 Lymph # (Auto) 2300 [place] # (Auto) 600 Eos # (Auto) 0 Baso # (Auto) 0 SARS-CoV-2 (PCR) Negative Blood Type A Negative Antibody Screen Positive Antibody Identification Anti-D 09/02/22 07:00 WBC 11.1 H RBC 3.44 L Hgb 11.2 L Hct 32.5 L MCV 94.4 MCH 32.6 MCHC 34.5 RDW 13.6 Plt Count 175 Neut % (Auto) 74.7 Lymph % (Auto) 18.0 L [place] % (Auto) 6.1 Eos % (Auto) 0.9 L Baso % (Auto) 0.3 Neut # (Auto) 8300 H Lymph # (Auto) 2000 [place] # (Auto) 700 Eos # (Auto) 100 Baso # (Auto) 0 SARS-CoV-2 (PCR) Blood Type Antibody Screen Antibody Identification Assessment & Plan Assessment and Plan (1) Advanced maternal age (AMA) in : Status: Acute (2) PFO (patent foramen ovale): Status: Chronic (3) Breech presentation: Status: Acute (4) S/P : Status: Acute Plan Comments: Pt is a 37yo POD#1 s/p primary for breech presentation without complications. Pt doing well. - Normal care - support Time Spent With Patient Time: Total time spent is greater than 50% in coordination of care (as documented) at patient's floor/unit and/or counseling patient: Time with patient: less than 15 minutes
[2022-09-02] MEDS: LANOLIN OINT 7 GM 1 APPLIC TOP (17:04)
[2022-09-02 18:51] VITALS: TEMP 36.6
[2022-09-02 18:52] VITALS: TEMP 36.6
[2022-09-02] MEDS: IBUPROFEN 600 MG TABLET PO (18:52)
[2022-09-03] MEDS: IBUPROFEN 600 MG TABLET PO ×3 (01:21→14:37)
[2022-09-03] MEDS: ACETAMINOPHEN 325 MG TABLET 650 MG PO ×2 (01:22→07:59)
[2022-09-03] MEDS: DOCUSATE 100 MG CAPSULE 200 MG PO (09:13)
--- NOTE | 2022-09-03 10:08 | P.DS_ITS ---
Discharge Providers Provider Date of admission: 09/01/22 13:58 Discharge Date: 09/03/22 Primary care physician: NAT Gaitan Consults: 09/01/22 18:14 Consult to Hand Stripper Routine Comment: Discharge provider: Samreen Thornton MD Summary Hospital Course Date Patient Seen: 09/03/22 Diagnoses: 39w0d gestation AMA GBS negative Rh negative PFO Hyperemesis gravidarum Breech presentation Hospital Course: The pt presented with SROM in active labor. Her baby was confirmed to be in breech presentation. The pt underwent primary without any complic ations, and delivered a viable baby girl. , there were no complications. At the time of discharge she was voiding, ambulating, and passing flatus without difficulty. Her lochia was decreasing appropriately. Her pain was well controlled. She was with good latch. She will f/u in 1 week for check. Peripartum Data Delivery Method: Section Procedures: Primary complications: none [place] 1: Gender: Female Disposition of : home Discharge Diagnosis (1) Advanced maternal age (AMA) in : Status: Acute (2) PFO (patent foramen ovale): Status: Chronic (3) Breech presentation: Status: Acute (4) S/P : Status: Acute Status at Discharge Cognitive/behavioral status at discharge: oriented Functional status at discharge: independent ambulation Overall status at discharge: patient is progressing back to baseline Time Spent with Patient Time attestation: Total time spent providing and/or coordinating discharge services: Time spent: Greater than 30 minutes Objective Labs Result Diagrams: 09/02/22 07:00 Exam Vital Signs (past 8 hours): Oxygen Delivery Method Room Air Resp Auscultation: clear to auscultation bilaterally Cardio Rate: regular rate Rhythm: regular rhythm Heart Sounds: S1 normal, S2 normal and no murmurs GI Inspection: non-distended and incision (dressing c/d/i) Palpation: soft, No guarding and tender (appropriately tender) Auscultation: normal bowel sounds Other: fundus firm and below the umbilicus Extrem Right upper extremity: no edema Discharge Plan Discharge Plan Patient Disposition: Home Discharge orders & Medications Prescriptions: New acetaminophen 325 mg Tablet 650 mg PO Q6H PRN (Reason: Fever/Mild Pain (1-3)) Qty: 30 0RF docusate sodium 100 mg Capsule 200 mg PO DAILY Qty: 30 0RF ibuprofen 600 mg Tablet 600 mg PO Q6H PRN (Reason: Fever/Mild Pain (1-3)) Qty: 30 0RF oxycodone 5 mg Tablet 5 mg PO Q4H PRN (Reason: Pain, Moderate (4-6)) Qty: 30 0RF Continued (DME) double electric breast pump and supplies See Rx Instructions .Route .MEDSUPPLY Qty: 1 0RF Rx Instructions: As directed rizatriptan 10 mg tablet,disintegrating See Rx Instructions PO .COMPLEX Qty: 30 1RF Rx Instructions: take 1 tab at onset of headache; if no relief may repeat 1 tab after at least 2 hrs; max = 3 tabs/24 hr PO prenat.vits,hernan,ver-[id number] Tablet 1 tab PO DAILY Discontinued ondansetron 4 mg tablet,disintegrating 4 mg PO Q6H PRN (Reason: nausea and vomiting) Qty: 30 0RF promethazine 25 mg tablet 25 mg PO QID PRN (Reason: nausea and vomiting) Qty: 30 2RF Unisom (doxylamine) 25 mg tablet 25 mg PO BEDTIME PRN (Reason: Nausea) pyridoxine (vitamin B6) 100 mg tablet 100 mg PO QID Follow up/Referrals: Samreen Thornton MD [Physician] - 09/08/22 11:45 am Michael Spring ARNP [Primary Care Provider] - Diet/Activity/Treatments Diet: Diet as Tolerated and Regular Skin/Wound/Dressing Care Report to your healthcare provider any signs of infection, such as:: chills, fever, increased pain and unusual drainage Visit Report/Discharge Packet Instructions: DI for Visit Report Forms: Patient Portal/API, Stroke Signs & Symptoms Discharge Data Primary Care Provider: Michael Spring
[2022-09-03] MEDS: MEASLES,MUMPS,RUBELLA VACC/PF 0.5 ML VIAL SUBCUT (15:21)
[2022-09-03 15:30] VITALS: BP 108/76; PULSE 75; RESP 13; TEMP 36.6
== END 2022-09-03 15:30 | disposition home or self-care (01) | DRG 788 ==
PROVIDERS: Admitting Provider Family Medicine; PCP Registered Nurse Diabetes Educator; Referring Provider Family Medicine; Visit Provider Family Medicine
PROC: 10D00Z1 Extraction of Products of Conception, Low, Open Approach (ICD-10-PCS; CPT 59514; principal; 2022-09-01 15:30)
DX: O32.1XX0 Maternal care for breech presentation, not applicable or unspecified (principal); O75.89 Other specified complications of labor and delivery; Z3A.39 39 weeks gestation of pregnancy; Z37.0 Single live birth; O21.0 Mild hyperemesis gravidarum; Z67.11 Type A blood, Rh negative; Z20.822 Contact with and (suspected) exposure to COVID-19
CPT/HCPCS: 01961; 36415; 59050; 59510; 59514; 76815; 84112; 85025; 86850; 86870; 86900; 86901; 87635; C9803; G0379; J0690; J1200; J1885; J2274; J2405; J2590

== ENCOUNTER → 2022-12-02 13:34 | Outpatient (CLI) | payer OTHER, SELFPAY ==
[2022-12-02 15:11] LABS: Urine N gonorrhoeae NOT DETECTED
[2022-12-02 15:12] LABS: Urine Chlamydia NOT DETECTED
== END ==
PROVIDERS: PCP Family Medicine; Visit Provider Family Medicine
DX: Z30.430 Encounter for insertion of intrauterine contraceptive device (principal)
CPT/HCPCS: 87491; 87591